=== PATIENT | male | born 1955 | race Caucasian/White ===

== ENCOUNTER → 2017-01-31 | Outpatient (CLI) | payer MEDICARE ==
[2017-01-31 13:59] LABS: INR 2.11
== END ==
LOC: M WUC 09:32
PROVIDERS: ATTEND Physician Assistant Medical
DX: I48.91 Unspecified atrial fibrillation (principal)

== ENCOUNTER → 2018-01-04 | Outpatient (CLI) | payer MEDICARE ==
[2018-01-04 13:13] LABS: INR 2.02; PROTHROMBIN TIME 23.2 SECONDS (12.1-14.4)
== END ==
LOC: M WUC 10:16
DX: Z79.01 Long term (current) use of anticoagulants (principal); I48.91 Unspecified atrial fibrillation
CPT/HCPCS: 85610

== ENCOUNTER → 2018-12-25 | Outpatient (CLI) | payer MEDICARE ==
[2018-12-25 17:56] LABS: INR 2.03; PROTHROMBIN TIME 22.7 SECONDS (11.8-14.0)
== END ==
LOC: M WUC 14:08
DX: Z51.81 Encounter for therapeutic drug level monitoring (principal); Z79.01 Long term (current) use of anticoagulants; I48.91 Unspecified atrial fibrillation

== ENCOUNTER 2021-01-30 11:44 | Observation (INO) | payer MEDICARE ==
[~2021-01-30] VITALS: Ht 180.3 cm; Wt 94.5 kg
--- NOTE | 2021-01-30 12:36 | REP ---
INDICATION: CHEST PAIN. COMPARISON: None. TECHNIQUE: AP chest FINDINGS: Her the heart is enlarged. Postoperative changes are noted after cardiac surgery and pacemaker insertion. There is mild pulmonary venous congestion and small bilateral pleural effusions. The lungs are clear. IMPRESSION: Cardiomegaly. Small bilateral pleural effusions. Mild pulmonary venous congestion. <Electronically signed by Abdullahi Mantilla > 01/30/21 [id number]
[2021-01-30] MEDS ORDERED: JANT5TAB PO ×2 (13:06)
[2021-01-30] MEDS ORDERED: POTA20TA6 PO (13:06)
[2021-01-30] MEDS ORDERED: LEVO75TA4 PO (13:06)
[2021-01-30] MEDS ORDERED: OMEG10002 PO (13:06)
[2021-01-30] MEDS ORDERED: LOSA100T50 PO (13:06)
[2021-01-30] MEDS ORDERED: VITMTA PO (13:06)
[2021-01-30] MEDS ORDERED: CARV25TA PO (13:06)
[2021-01-30] MEDS ORDERED: FURO40TA2 PO (13:06)
[2021-01-30] MEDS ORDERED: ASPI-161 PO (13:06)
[2021-01-30] MEDS ORDERED: C 50TAB PO (13:06)
[2021-01-30] MEDS ORDERED: HOME MED LIST COMPLETE! XX SCH (13:10)
[2021-01-30 13:20] LABS: HEMOGLOBIN 13.9 g/dl (13.5-17.5); MEAN CORPUSCULAR HEMOGLOBIN 33.9 pg (27.0-33.0); MEAN CORPUSCULAR HGB CONC 33.1 g/dl (32.0-36.5); MEAN CORPUSCULAR VOLUME 102.4 fl (80.0-96.0); PLATELET COUNT, AUTOMATED 130 10^3/uL (150-450); WHITE BLOOD COUNT 6.7 10^3/uL (4.0-10.0)
[2021-01-30 13:27] LABS: VENOUS BASE EXCESS 3.2 (-2.0-2.0); VENOUS HCO3 28.8 MEQ/L (23.0-27.0); VENOUS O2 SATURATION 82.6 % (60.0-80.0); VENOUS PARTIAL PRESSURE CO2 47.5 mmHg (38.0-50.0); VENOUS PARTIAL PRESSURE O2 46.1 mmHg (30.0-50.0); VENOUS PH 7.401 UNITS (7.330-7.430); VENOUS TOTAL CO2 30.3 MEQ/L (24.0-28.0)
[2021-01-30 13:34] LABS: D-DIMER QUANT 349.54 ng/ml (<500)
[2021-01-30 13:43] LABS: ATYPICAL LYMPH 6 % (0-5); EOSINOPHILS 2 % (0-3); LYMPHOCYTES 17 % (16-44); MONOCYTES 6 % (0-5); MYELOCYTES 1 % (0-0); NEUTROPHILS 60 % (28-66); PLATELET CLUMPS SMALL AMT; PLATELET ESTIMATE DECREASED (NORMAL)
[2021-01-30 13:50] LABS: INR 2.11
[2021-01-30 13:56] LABS: RSV AMPLIFICATION NEGATIVE (NEGATIVE)
[2021-01-30 14:01] LABS: BLOOD UREA NITROGEN 16 MG/DL (7-18); CALCIUM LEVEL 8.7 MG/DL (8.8-10.2); CARBON DIOXIDE LEVEL 28 MEQ/L (21-32); CHLORIDE LEVEL 105 MEQ/L (98-107); CK-MB VALUE MASS 2.2 NG/ML (<3.6); CPK CREATINE PHOSPHOKINASE 167 U/L (39-308); CREATININE FOR GFR 1.04 MG/DL (0.70-1.30); FREE T4 1.12 NG/DL (0.76-1.46); GLOMERULAR FILTRATION RATE > 60.0 (>49); GLUCOSE, FASTING 117 MG/DL (70-100); MB/CK RELATIVE INDEX 1.32 (< OR =4); NT-PRO BNP 227 PG/ML (<125); SODIUM LEVEL 140 MEQ/L (136-145); TROPONIN I < 0.02 NG/ML (< 0.10)
[2021-01-30] MEDS ORDERED: MOM 30ML SUSPENSION UDC PO PRN (15:45)
[2021-01-30] MEDS ORDERED: ACETAMINOPHEN TAB 650MG DOSE (2X325MG) PO PRN (15:45)
[2021-01-30] MEDS ORDERED: MAALOX 30 ML SUSP *UDC PO PRN (15:45)
--- NOTE | 2021-01-30 16:03 | HPEPDOC ---
[facility] Medical History & Physical Date of Admission Jan 30, 2021 Date of Service: Jan 30, 2021 History and Physical Chief complaint: Presented to the emergency room after he experienced a near syncope episode History of present illness: Patient is a 65-year-old male with a PMHx of Fabricio braun (on Coumadin), Suspected SSS s/p PM, Tricuspid / Mitral valve replacement, HTN, Hypothyroidism, who presented to the emergency room after he experienced a near-syncopal episode while at home. Patient reported that he was outside washing his 4 calvin. Patient noted that he had walked up a hill to set up a sprinkler however, on his weight back down the hill. He reported lightheadedness and that he was about to pass out. Reported his vision was going black. Patient had called out to his who had gotten a chair and sat him down place him on oxygen, which she had available to her. Patient reported that he did not express any chest pain but did report some shortness of breath, denied any cough or palpitations. Did not experience any nausea, vomiting or any excessive sweating. Denied any abdominal pain. Patient reports that he is not experiencing any recent diarrhea. In fact reports his last bowel movement was this morning and normal. Denies any urinary discomfort or any recent fevers or chills. Patient reports that his appetite is fairly normal and denies any changes in his weight recently. He reports that he is compliant with his diuretics at home. Of note, patient is from [place], [place] and his established shellfish bed worker is not present locally. Past Medical History: Fabricio braun (on Coumadin), Suspected SSS s/p PM, Tricuspid / Mitral valve replacement, HTN, Hypothyroidism Past Surgical History: Mitral / Tricuspid valve replacement (2011) Ventricular pacemaker (2011, 2015, 2019) Bronchoscopy (for hemoptysis for 1.5 years; unrevealing) Reported VATs procedure with complication of lymphatic leak that was corrected surgically (08/2019) Intestinal rupture as a child from trauma s/p resection Left foot fracture Allergies: See below Medications: See below Family History: - Mother with history of diabetes and breast cancer. 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 Small bilateral pleural effusions. Mild pulmonary venous congestion. EKG: See below Assessment and Plan: Pre-syncope - Patient presented to the ER after he reported almost passing out at home - Patient appears to be hemodynamically stable and afebrile - No orthostatic hypotension - Lab work appears to be generally benign - Troponin first set noted to be negative; will follow trend - EKG reviewed - Imaging reviewed - c/w Telemetry monitoring - Will get ECHO / Troponin trend - Will resume home medications - Will start PT Chronic A. fib - EKG currently reveals a paced rhythm - INR is therapeutic - c/w rate control with carvedilol - c/w Full anticoagulation with Coumadin Suspected SSS s/p PM Tricuspid / Mitral valve replacement HTN - BP well controlled - c/w Carvedilol, Losartan, Furosemide Hypothyroidism - Thyroid function noted - c/w levothyroxine DVT prophylaxis - Will c/w full anticoagulation with Coumadin Vital Signs Vital Signs Date Time Temp Pulse Resp B/P (MAP) Pulse Ox O2 Delivery O2 Flow Rate FiO2 01/30/21 14:41 90 133/73 (93) 91 133/75 (94) 91 126/73 (90) 01/30/21 11:59 96 01/30/21 11:54 97.4 18 Room Air Laboratory Data Labs 24H Laboratory Tests 2 01/30/21 13:05: Neutrophils (%) (Auto) , Nucleated Red Blood Cells % (auto) 0.0, Neutrophils 60, Band Neutrophils 8, Lymphocytes (Manual) 17, Monocytes (Manual) 6H, Eosinophils (Manual) 2, Myelocytes 1H, Atypical Lymphocytes 6H, Macrocytosis 2+, Platelet Estimate DECREASED, Clumped Platelets SMALL AMT, Prothrombin Time 24.0H, Prothromb Time International Ratio 2.11, D-Dimer, Quantitative 349.54, Blood Gas Bicarbonate Standard 27.0, Venous Blood pH 7.401, Venous Blood Partial Pressure CO2 47.5, Venous Blood Partial Pressure O2 46.1, Venous Blood Total Carbon Dioxide 30.3H, Venous Blood HCO3 28.8H, Venous Blood Oxygen Saturation 82.6H, Venous Blood Base Excess 3.2H, Anion Gap 7L, Glomerular Filtration Rate > 60.0, Calcium Level 8.7L, Total Creatine Kinase 167, Creatine Kinase MB 2.2, Creatine Kinase MB Relative Index 1.32, Troponin I < 0.02, GK-Boa-J-Type Natriuretic Peptide 227H, Thyroid Stimulating Hormone (TSH) 4.250H, Free Thyroxine 1.12, Coronavirus (COVID-19)(PCR) NEGATIVE, Influenza Type A (RT-PCR) NEGATIVE, Influenza Type B (RT-PCR) NEGATIVE, Respiratory Syncytial Virus (PCR) NEGATIVE 01/30/21 13:10: POC Troponin I (Misc) 0.01 01/30/21 13:28: POC Glucose (Misc Panel) 116H, POC Sodium (Misc Panel) 141, POC Potassium (Misc Panel) 3.8, POC Chloride (Misc Panel) 100, POC Total CO2 (Misc Panel) 26.0, POC Blood Urea Nitrogen (Misc Panel 17, POC Ionized Calcium (Misc Panel) 4.2L, POC Creatinine (Misc Panel) 1.0, POC Hematocrit (Misc Panel) 55.0H CBC/BMP Laboratory Tests 01/30/21 13:05 Home Medications Scheduled Ascorbic Acid (Vitamin C) 500 Mg Tablet, 500 MG PO DAILY Aspirin (Aspirin EC) 81 Mg Tablet.dr, 81 MG PO QHS Carvedilol (Carvedilol) 25 Mg Tablet, 12.5 MG PO BID Furosemide (Furosemide) 40 Mg Tablet, 40 MG PO DAILY Levothyroxine Sodium (Levothyroxine Sodium) 75 Mcg Tablet, 75 MCG PO DAILY Losartan Potassium (Losartan Potassium) 100 Mg Tablet, 100 MG PO DAILY Multivitamins (Thera M Plus Tablet) 1 Each Tablet, 1 TAB PO DAILY [place]-3/Dha/Epa/Fish Oil (Fish Oil 1,000 mg Softgel) 1 Each Capsule, 2,000 MG PO BID Potassium Chloride (Potassium Chloride) 20 Meq Tab.er.prt, 20 MEQ PO BID Warfarin Sodium (Jantoven) 5 Mg Tablet, 2.5 MG PO 6XWK HS ON SUN, MON, , TH, SUN, SAT Warfarin Sodium (Jantoven) 5 Mg Tablet, 5 MG PO 1XWK HS ON SUNDAY Allergies Coded Allergies: heparin (Verified Allergy, Severe, Feet turn purple, 01/30/21) TIANA RAMOS MD Jan 30, 2021 16:03
[2021-01-30 16:20] LABS: ALBUMIN 3.7 GM/DL (3.2-5.2); ALT/SGPT 44 U/L (12-78); BILIRUBIN,DIRECT 0.3 MG/DL (0.0-0.2); MAGNESIUM LEVEL 1.8 MG/DL (1.8-2.4); PHOSPHORUS LEVEL 3.6 MG/DL (2.5-4.9)
[2021-01-30 20:00] VITALS: BP 115/74
[2021-01-30 21:00] LABS: CK-MB VALUE MASS 2.5 NG/ML (<3.6); CPK CREATINE PHOSPHOKINASE 154 U/L (39-308); MB/CK RELATIVE INDEX 1.62 (< OR =4); TROPONIN I < 0.02 NG/ML (< 0.10)
[2021-01-30] MEDS ORDERED: ASPIRIN 81MG ENTERIC TABLET PO SCH (21:00)
[2021-01-30] MEDS: OMEGA-3 1000MG CAPSULE PO SCH (21:14)
[2021-01-30] MEDS: POTASSIUM CHLORIDE 10 MEQ SR TABLET PO SCH (21:14)
[2021-01-30] MEDS: WARFARIN SOD 2.5MG TAB PO SCH (21:14)
[2021-01-30] MEDS: DOCUSATE SODIUM 100MG CAPSULE PO SCH (21:14)
[2021-01-30] MEDS: CARVedilol 12.5 MG TAB PO SCH (21:15)
[2021-01-31] VITALS: BP 112/57
[2021-01-31 01:31] LABS: CK-MB VALUE MASS 1.4 NG/ML (<3.6); CPK CREATINE PHOSPHOKINASE 127 U/L (39-308); TROPONIN I < 0.02 NG/ML (< 0.10)
[2021-01-31 04:00] VITALS: BP 114/68
[2021-01-31 05:30] LABS: HEMATOCRIT 40.4 % (42.0-52.0); HEMOGLOBIN 13.4 g/dl (13.5-17.5); MEAN CORPUSCULAR HEMOGLOBIN 33.6 pg (27.0-33.0); MEAN CORPUSCULAR HGB CONC 33.2 g/dl (32.0-36.5); MEAN CORPUSCULAR VOLUME 101.3 fl (80.0-96.0); PLATELET COUNT, AUTOMATED 129 10^3/uL (150-450); RED BLOOD COUNT 3.99 10^6/uL (4.30-6.10); WHITE BLOOD COUNT 5.9 10^3/uL (4.0-10.0)
--- NOTE | 2021-01-31 05:33 | ECGEPIP ---
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
[2021-01-31 05:46] LABS: BLOOD UREA NITROGEN 15 MG/DL (7-18); CALCIUM LEVEL 8.4 MG/DL (8.8-10.2); CARBON DIOXIDE LEVEL 26 MEQ/L (21-32); CHLORIDE LEVEL 106 MEQ/L (98-107); CREATININE FOR GFR 0.89 MG/DL (0.70-1.30); GLOMERULAR FILTRATION RATE > 60.0 (>49); GLUCOSE, FASTING 109 MG/DL (70-100); MAGNESIUM LEVEL 1.7 MG/DL (1.8-2.4); POTASSIUM SERUM 3.9 MEQ/L (3.5-5.1); SODIUM LEVEL 138 MEQ/L (136-145)
[2021-01-31 05:50] LABS: INR 1.95; PROTHROMBIN TIME 22.6 SECONDS (12.7-14.5)
[2021-01-31] MEDS ORDERED: LEVOTHYROXINE 75MCG TABLET (0.075MG) PO SCH (06:00)
[2021-01-31] MEDS ORDERED: MAG SULF 1GM/100ML (MAG RUN) 1 GM in IV 1 EA IV ONE (07:00)
[2021-01-31 07:25] LABS: ATYPICAL LYMPH 7 % (0-5); EOSINOPHILS 6 % (0-3); LYMPHOCYTES 27 % (16-44); MONOCYTES 7 % (0-5); NEUTROPHILS 51 % (28-66)
[2021-01-31 07:26] LABS: PLATELET ESTIMATE NORMAL (NORMAL)
[2021-01-31 07:38] VITALS: BP 133/69
[2021-01-31 08:03] VITALS: BP 133/69
[2021-01-31] MEDS: OMEGA-3 1000MG CAPSULE PO SCH (08:04)
[2021-01-31] MEDS: CARVedilol 12.5 MG TAB PO SCH (08:04)
[2021-01-31] MEDS: POTASSIUM CHLORIDE 10 MEQ SR TABLET PO SCH (08:05)
[2021-01-31] MEDS: DOCUSATE SODIUM 100MG CAPSULE PO SCH (08:05)
[2021-01-31] MEDS ORDERED: FUROSEMIDE 40 MG TAB PO SCH (09:00)
[2021-01-31] MEDS ORDERED: ASCORBIC ACID 500 MG TAB PO SCH (09:00)
[2021-01-31] MEDS ORDERED: MULTIVITAMINS/MINERALS THERAP 1 TAB PO SCH (09:00)
[2021-01-31] MEDS ORDERED: LOSARTAN 50MG TABLET PO SCH (09:00)
[2021-01-31 11:10] LABS: HEPATITIS B SURFACE ANTIGEN NEGATIVE (NEGATIVE)
[2021-01-31 11:37] LABS: HEPATITIS C VIRUS ABY INDEX 0.1 INDEX (<0.8)
[2021-01-31 11:39] LABS: HEPATITIS B CORE ANTIBODY IGM NEGATIVE (NEGATIVE)
[2021-01-31 11:40] LABS: HEPATITIS A ANTIBODY IGM NEGATIVE (NEGATIVE)
[2021-01-31 11:56] VITALS: BP 112/78
[2021-01-31 15:50] VITALS: BP 103/53
[2021-01-31] MEDS: WARFARIN SOD 2.5MG TAB PO SCH (16:21)
--- NOTE | 2021-01-31 17:18 | DS.PDOC ---
Discharge Summary General Date of Admission Jan 30, 2021 at 15:41 Date of Discharge 01/31/2021 Discharge Summary PROCEDURES PERFORMED DURING STAY: [None]. ADMITTING DIAGNOSES / DISCHARGE DIAGNOSES: Pre-syncope Hypomagnesemia Chronic A. fib Suspected SSS s/p PM Tricuspid / Mitral valve replacement HTN Hypothyroidism DVT prophylaxis COMPLICATIONS/CHIEF COMPLAINT: Feeling of passing out HISTORY OF PRESENT ILLNESS: Patient is a 65-year-old male with a PMHx of A. fib (on Coumadin), Suspected SSS s/p PM, Tricuspid / Mitral valve replacement, HTN, Hypothyroidism, who presented to the emergency room after he experienced a near-syncopal episode while at home. Patient reported that he was outside washing his 4 calvin. Patient noted that he had walked up a hill to set up a sprinkler however, on his weight back down the hill. He reported lightheadedness and that he was about to pass out. Reported his vision was going black. Patient had called out to his who had gotten a chair and sat him down place him on oxygen, which she had available to her. Patient reported that he did not experience any chest pain but did report some shortness of breath, denied any cough or palpitations. Did not experience any nausea, vomiting or any excessive sweating. Denied any abdominal pain. Lenora ent was admitted to the hospitalist service for further evaluation and treatment. Patient was seen and examined at the bedside this morning. Denied any chest pain, shortness breath, palpitations, nausea, vomiting, abdominal pain, diarrhea, or urinary discomfort. Has not experienced any further episodes of lightheadedness or dizziness since admission. I have come back again this afternoon and relayed information to patient regarding results of echocardiogram also had a discussion with patient's nurse practitioner at their refrigerator assembler's office. Discussed with Ambar Bull and advised her of all the workup completed to date. They agree with plan and will have follow-up with refrigerator assembler in [place] within 2 weeks. HOSPITAL COURSE: Pre-syncope - Patient presented to the ER after he reported almost passing out at home - Patient has remained asymptomatic since admission and he remains hemod ynamically stable without any fevers - No orthostatic hypotension - Troponin trend 3 has been negative - No significant electrolyte abnormalities - EKG reviewed - Imaging reviewed - c/w Telemetry monitoring - Echocardiogram was discussed with cardiology; Generally is benign with 65% ejection fraction, no pericardial effusions, and bioprosthetic mitral and tricuspid valves - Pacemaker was interrogated by [facility] on 01/31 - no events recorded and pacer is functioning appropriately - c/w home medications - Cleared by PT for DC home - Discussed with patient's MEAL COOKER at refrigerator assembler office; Ambar Bull - Will have outpatient follow-up with cardiology and primary care provider within the next 14 days Hypomagnesemia - Supplemented Chronic A. fib - Paced rhythm - EKG currently reveals a paced rhythm - INR noted; will c/w adjusted dose of Coumadin based on outpatient regimen - c/w rate control with carvedilol - c/w Full anticoagulation with Coumadin Suspected SSS s/p PM - See above (interrogated) Tricuspid / Mitral valve replacement HTN - BP well controlled - c/w Carvedilol, Losartan, Furosemide Hypothyroidism - Thyroid function noted - c/w levothyroxine DVT prophylaxis - Will c/w full anticoagulation with Coumadin DISCHARGE MEDICATIONS: Please see below. ALLERGIES: Please see below. PHYSICAL EXAMINATION ON DISCHARGE: Vitals (See below) General: Sitting up in bed and appears to be comfortable without any acute distress, awake and alert, oriented 3 HEENT: Normocephalic and atraumatic CVS: +S1S2 Lungs: Fair air entry b/l, no evidence of wheezing, crackles or rhonchi Abdomen: Soft, ND, NT Extremities: - Edema, - Calf tenderness LABORATORY DATA: Please see below. IMAGING: CXR 01/30: Cardiomegaly. Small bilateral pleural effusions. Mild pulmonary venous congestion. ACTIVITY: [As tolerated]. DISCHARGE PLAN: Follow-up with primary care provider and refrigerator assembler within 14 days Remain compliant with treatment plan and medications Return to the ER if you experience any problems DISPOSITION: Home DISCHARGE CONDITION: [Stable]. TIME SPENT ON DISCHARGE: 20 minutes. Vital Signs/I&Os Vital Signs Date Time Temp Pulse Resp B/P (MAP) Pulse Ox O2 Delivery O2 Flow Rate FiO2 01/31/21 15:50 98.4 60 18 103/53 (70) 94 Room Air I&O- Last 24 Hours up to 6 AM 01/31/21 06:00 Intake Total 300 ml Output Total 0 ml Balance 300 ml Laboratory Data Labs 24H Laboratory Tests 2 01/30/21 20:17: Total Creatine Kinase 154, Creatine Kinase MB 2.5, Creatine Kinase MB Relative Index 1.62, Troponin I < 0.02 01/31/21 00:53: Total Creatine Kinase 127, Creatine Kinase MB 1.4, Creatine Kinase MB Relative Index 1.10, Troponin I < 0.02 01/31/21 05:12: Neutrophils (%) (Auto) , Nucleated Red Blood Cells % (auto) 0.0, Neutrophils 51, Band Neutrophils 2, Lymphocytes (Manual) 27, Monocytes (Manual) 7H, Eosinophils (Manual) 6H, Atypical Lymphocytes 7H, Red Blood Cell Morphology NORMAL, Platelet Estimate NORMAL, Prothrombin Time 22.6H, Prothromb Time International Ratio 1.95, Anion Gap 6L, Glomerular Filtration Rate > 60.0, Calcium Level 8.4L, Magnesium Level 1.7L CBC/BMP Laboratory Tests 01/31/21 05:12 Discharge Medications Scheduled Ascorbic Acid (Vitamin C) 500 Mg Tablet, 500 MG PO DAILY, (Reported) Aspirin (Aspirin EC) 81 Mg Tablet.dr, 81 MG PO QHS, (Reported) Carvedilol (Carvedilol) 25 Mg Tablet, 12.5 MG PO BID, (Reported) Furosemide (Furosemide) 40 Mg Tablet, 40 MG PO DAILY, (Reported) Levothyroxine Sodium (Levothyroxine Sodium) 75 Mcg Tablet, 75 MCG PO DAILY, (Reported) Losartan Potassium (Losartan Potassium) 100 Mg Tablet, 100 MG PO DAILY, (Reported) Multivitamins (Thera M Plus Tablet) 1 Each Tablet, 1 TAB PO DAILY, (Reported) [place]-3/Dha/Epa/Fish Oil (Fish Oil 1,000 mg Softgel) 1 Each Capsule, 2,000 MG PO BID, (Reported) Potassium Chloride (Potassium Chloride) 20 Meq Tab.er.prt, 20 MEQ PO BID, (Reported) Warfarin Sodium (Jantoven) 5 Mg Tablet, 2.5 MG PO 6XWK, (Reported) HS ON SUN, MON, TU, TH, SUN, SUN Warfarin Sodium (Jantoven) 5 Mg Tablet, 5 MG PO 1XWK, (Reported) HS ON SUNDAY Allergies Coded Allergies: heparin (Verified Allergy, Severe, Feet turn purple, 01/30/21) TIANA RAMOS MD Jan 31, 2021 17:18
--- NOTE | 2021-02-01 09:21 | ECHO ---
ECHOCARDIOGRAM DATE OF PROCEDURE: 01/31/2021 Age: Gender: Male Height: 89 cm Weight: 96 kg REFERRING PHYSICIAN: Kevin Keane M.D. INDICATION: Syncope. MEASUREMENTS: 2D Measurements: Interventricular septum 1.5 cm LV end-diastole 4.2 cm Posterior wall 1.16 cm Left atrium 5.1 cm Left atrial volume index 75 Proximal ascending aorta 3.3 cm Aortic annulus 2.4 cm Aortic root 3.2 cm Inferior vena cava 2.4 cm Doppler Measurements: Aortic valve velocity 151 cm/sec LVOT velocity 79.0 cm/sec Very mild mitral regurgitation No aortic stenosis No aortic regurgitation Very mild tricuspid regurgitation No tricuspid stenosis Estimated right ventricle systolic pressure 15-20 mmHg Estimated right atrial pressure 5-10 mmHg Pulmonary artery acceleration time 119 msec consistent with normal pulmonary free systolic pressure DESCRIPTION: Underlying rhythm appeared to be atrial fibrillation. Ventricular paced rhythm. Image quality was adequate. No pericardial effusion. This was a 2D, M-mode, color flow Doppler and pulse wave Doppler examination and included mitral annular tissue Doppler. CONCLUSIONS: 1. Normal left ventricle internal dimensions and wall thickness. Normal regional left ventricular (LV) wall motion and wall thickening despite ventricle pacing. Left ventricular ejection fraction (LVEF) 60-65% by visual assessment. LV diastolic assessment indeterminate due to presence of mitral valve prosthesis and atrial fibrillation. 2. Normal right ventricle size and systolic function. 3. Moderate aortic valve sclerosis of A3-cuspid aortic valve. No aortic stenosis or regurgitation. 4. Well-seated, normally functioning mitral valve bioprosthesis. Very mild mitral regurgitation within the normal functioning range. No mitral stenosis. 5. Status post tricuspid valve repair with an annular sewing ring. Very mild tricuspid regurgitation. No tricuspid stenosis. 6. Severe left atrial dilatation. 7. Presence of an endocardial right ventricle pacemaker lead. 8. No pericardial effusion. MTDD
[2021-02-02] MEDS ORDERED: WARFARIN SOD 5MG TAB PO SCH (17:00)
== END 2021-01-31 18:34 | disposition home or self-care (01) ==
LOC: M ED 11:44 → M ED INP 15:41 → ENRESERV 16:18 → M PCU 20:01
PROVIDERS: ADMIT Internal Medicine; ATTEND Internal Medicine
DX: R55 Syncope and collapse (principal); E83.42 Hypomagnesemia; I48.20 Chronic atrial fibrillation, unspecified; Z95.2 Presence of prosthetic heart valve; I10 Essential (primary) hypertension; E03.9 Hypothyroidism, unspecified; Z95.0 Presence of cardiac pacemaker; R06.02 Shortness of breath; I25.10 Atherosclerotic heart disease of native coronary artery without angina pectoris; Z79.899 Other long term (current) drug therapy; Z79.01 Long term (current) use of anticoagulants; Z79.82 Long term (current) use of aspirin; Z88.8 Allergy status to other drugs, medicaments and biological substances
CPT/HCPCS: 36415; 71045; 80047; 80048; 80076; 82550; 82553; 82803; 83735; 83880; 84100; 84439; 84443; 84484; 85025; 85379; 85610; 86705; 86709; 86803; 87340; 87631; 93005; 93041; 93306; 97161; 99285; G0378; J3475

== ENCOUNTER → 2022-12-21 | Outpatient (REF) | payer MEDICARE ==
[~2022-12-21] MED LIST: ASPI-161 PO; C 50TAB PO; CARV25TA PO; FURO40TA2 PO; JANT5TAB PO; LEVO75TA4 PO; LOSA100T46 PO; OMEG10002 PO; POTA-151 PO; VITMTA PO
[2022-12-21 19:32] LABS: BLOOD UREA NITROGEN 30 MG/DL (9-23); CALCIUM LEVEL 9.1 MG/DL (8.3-10.6); CARBON DIOXIDE LEVEL 24 MMOL/L (20-31); CHLORIDE LEVEL 104 MMOL/L (98-107); CREATININE FOR GFR 1.14 MG/DL (0.70-1.30); GLOMERULAR FILTRATION RATE > 60.0 (>49); GLUCOSE, FASTING 145 MG/DL (74-106); POTASSIUM SERUM 4.5 MMOL/L (3.5-5.1); SODIUM LEVEL 137 MMOL/L (136-145)
== END ==
LOC: M LAB REF 19:03
PROVIDERS: ATTEND Internal Medicine Cardiovascular Disease
DX: I48.20 Chronic atrial fibrillation, unspecified (principal)